=== PATIENT | male | born 1950 | race African-American/Black ===

== ENCOUNTER 2016-06-17 18:43 | Observation (INO) ==
[2016-06-17] MEDS ORDERED: ALBUTEROL/IPRATROPIUM 3 ML NEB RESP TX STA (23:21)
[2016-06-17 23:42] LABS: Basophils % 0.3 % (0.0-0.8); Hematocrit 33.3 VOL% (42.0-52.0); Hemoglobin 10.5 GM/DL (14.0-18.0); Immature Granulocytes % 0.1 %; Immature Granulocytes Absolute 0.01 #; Lymphocytes # 1.1 10*3/uL (1.4-4.0); Lymphocytes % 16.5 % (21.2-54.2); Mean Corpuscular HGB Conc 31.5 GM/DL (32-36); Mean Corpuscular Hemoglobin 28 PG (27-34); Mean Corpuscular Volume 87.6 FL (87-102); Mean Platelet Volume 11.5 FL (9.6-12.0); Monocytes # 1.1 10*3/uL (0.11-0.8); Monocytes % 15.9 % (1.7-12.7); Neutrophils # 4.7 10*3/uL (1.4-7.4); Neutrophils % 67.2 % (38.7-73.9); Platelet Count 181 10*3/uL (130-400); Red Cell Distribution Width 17.4 % (9.3-17.3); White Blood Count 6.9 10*3/uL (4.5-13.71)
[2016-06-17 23:46] LABS: INR 1.2; PT Patient Result 12.5 SECS
[2016-06-17 23:59] LABS: Albumin 2.4 G/DL (3.4-5.0); Bilirubin,Total 1.1 MG/DL (0.2-1.0); Calcium 9.5 MG/DL (8.5-10.1); Potassium 4.2 MMOL/L (3.5-5.1); Total Protein 8.1 G/DL (6.4-8.3)
[2016-06-18 01:05] LABS: Sedimentation Rate-Westergren 90 MM/HR (0-20)
[2016-06-18 01:15] LABS: Apearance,Urine CLOUDY (Clear); Bacteria,Urine Occasional /HPF (Few); Bilirubin,Urine Negative (Negative); Blood, Urine Small mg/dL (Negative); Glucose,Urine (UA) Negative (Negative); Hyaline Casts,Urine 14 /LPF (0-3); Ketones,Urine Negative (Negative); Mucus,Urine Few /LPF (Occasional); Nitrite,Urine Negative (Negative); Protein,Urine 100 MG/DL; RBC,Urine 7 /HPF (0-4); Squamous Epithelial Cell,Urine Occasional /HPF (0-10); Urine Color Amber (Yellow); WBC,Urine 1 /HPF (0-6)
[2016-06-18] MEDS ORDERED: cefTRIAXone 1,000 MG in SODIUM CHLORIDE 0.9% 100 ML IV STA (01:36)
[2016-06-18] MEDS ORDERED: AZITHROMYCIN INJ 500 MG in SODIUM CHLORIDE 0.9% 250 ML IV STA (01:36)
--- NOTE | 2016-06-18 01:36 | Emergency Department Note ---
Nate Rose Sierra, am scribing for, and in the presence of, Jose Toro MD 23:32. Cortez Rose Charles R, MD, personally performed the services described in this documentation, ascribed by Beth Sullivan in my presence, and it is both accurate and complete 135 . Arrival - Arrival Chief Complaint: Upper Respiratory Stated Complaint: cold ED Nursing Triage Note: pt presents to triage ambulatory when c/o cold s/s. reports non-productive cough. report temp max at home was 101.8. pt has colon ca with liver mets. last chemo was 2 wks ago. no resp distress noted Mode of Arrival: Ambulatory Limitations: No Limitations Source: Patient, Family Time Seen by Provider: 06/17/16 22:44 - History of Present Illness HPI Narrative: Pt is a 65 y/o male that came to the ED with c/o fever that began 3 or 4 days ago. Pt has associated sxs of dry throat, cough, sneezing, and chills. Pt is currently taking chemo for colon CA with liver mets. Pt has chemo ago on Saturday. Family member denies pt normally having fever with chemo. Family member reports pt recently had shingles. He has a PMHx of HTN but no DM. No other complaints/pain in ED. Onset (ago): day(s) Consistency: constant Severity: mild Severity scale (1-10): 2 Quality: aching Allergies/Adverse Reactions: Allergies Allergy/AdvReac Type Severity Reaction Status Date / Time No Known Allergies Allergy Verified 05/02/16 22:32 Home Medications: Home Medications Medication Instructions Recorded Confirmed Type Lisinopril/Hydrochlorothiazide 1 each PO DAILY 06/17/16 06/17/16 History [Lisinopril-Hctz 20-25 mg Tab] Review of System - Review of System 12 point system: reviewed and no additional remarkable complaints except as stated - Review of System Constitutional: Present: chills, fever Head/Ears/Nose/Throat: Present: other (sneezing). Absent: sore throat (dry throat) Respiratory: Present: cough Cardiovascular: Absent: chest pain Gastrointestinal: Absent: abdominal pain, nausea, vomiting, diarrhea Musculoskeletal: Absent: arm pain, back pain, leg pain, neck pain Skin: Absent: rash Neurological: Absent: numbness, confusion Psychiatric: Absent: anxiety Medical,Surgical,& Family Hx - Medical History Gastrointestinal: History of: Gastrointestinal Cancer (new diagnosis ca colon with liver mets) Musculoskeletal: No history of: Amputation Other: History of: Cancer (Colon Cancer with liver mets) - Surgical History Cardiac Surgeries: Patient Denies: Cardiac Catheterization Thoracic Surgeries: Patient denies;: Organ Transplant, Lobectomy Neurologic Surgeries: Patient denies: Neurologic Surgery HEENT Surgeries: Patient denies: Thyroid Surgery, Tonsilectomy & Adenoidectomy Abdominal Surgeries: Surgical HX of: Hernia Repair (several years ago) Reproductive Surgeries: Patient denies;: Genitourinary Surgery Orthopedic Surgeries: Surgical HX of;: Total Knee Replacement (right knee 2-3 years ago) Patient denies;: Implanted Devices, Orthopedic Surgery, Spinal Surgery, Total Hip Replacement - Family History Family History: Reports;: Family Cancer (mother-colon, 1 brother has prostate, and 1 brother has colon cancer) Denies;: Family Diabetes - Social History Smoking Status: Never smoker Frequency of Alcohol Use: None Type of Drug Use: None Exam Vital Signs: Vital Signs Temperature 99.1 F 06/17/16 21:39 Pulse Rate 95 H 06/17/16 23:52 Respiratory Rate 21 06/17/16 23:52 Blood Pressure 96/61 06/17/16 23:19 O2 Sat by Pulse Oximetry 100 06/17/16 23:52 - General General appearance: alert, in no apparent distress - Head Head exam: Present: atraumatic, normocephalic, other (temploral wasting) - Eye Eye exam: Present: PERRL, EOMI - ENT ENT exam: Present: mucous membranes dry. Absent: mucous membranes moist - Chest Chest inspection: Present: symmetric chest wall rise. Absent: tenderness - Respiratory Respiratory exam: Present: rhonchi (bilateral rhonchi) - Cardiovascular Cardiovascular exam: Present: tachycardia, normal heart sounds - Abdominal Exam Abdominal exam: Present: soft. Absent: tenderness - Extremities Exam Extremities exam: Present: full ROM. Absent: tenderness - Back Exam Back exam: Present: full ROM. Absent: tenderness - Neurological Exam Neurological exam: Present: alert, oriented X3, CN II-XII intact. Absent: motor sensory deficit - Psychiatric Psychiatric exam: Present: normal affect, normal mood - Skin Skin exam: Present: warm, dry Course - Consultations Consultation #1: Dr. Bradshaw will admit for Dr. Grant Time: 01:21 Results - Labs CBC & BMP: 06/17/16 23:21 06/17/16 23:21 Lab Results: I have reviewed the patients labs Labs: Microbiology 06/17/16 23:32 Nasal Aspirate Influenza Types A,B Antigen (AGATA) - Final Negative for Influenza A Ag Negative for Influenza B Ag 06/17/16 23:15 Throat Group A Streptococcus Rapid Screen - Final Negative for Grp A Strep Ag Laboratory Tests 06/17/16 06/17/16 23:21 23:21 Hgb 10.5 L Hct 33.3 L MCHC 31.5 L RDW 17.4 H Lymph % (Auto) 16.5 L Morrow % (Auto) 15.9 H Lymph # (Auto) 1.1 L Morrow # (Auto) 1.1 H Anion Gap 17.2 H BUN 38 H Creatinine 1.70 H BUN/Creatinine Ratio 22.00 H Glucose 111 H Total Bilirubin 1.10 H ALT 11 L Alkaline Phosphatase 148 H C-Reactive Protein 30.90 H Albumin 2.4 L Globulin 5.7 H Albumin/Globulin Ratio 0.4 L Laboratory Tests 06/17/16 23:21 Hgb 10.5 L Hct 33.3 L MCHC 31.5 L RDW 17.4 H Lymph % (Auto) 16.5 L Morrow % (Auto) 15.9 H Lymph # (Auto) 1.1 L Morrow # (Auto) 1.1 H ESR Westergren 90 H Laboratory Tests 06/18/16 01:00 Urine Urobilinogen 2.0 H Disposition Clinical Impression: Upper respiratory infection, Colon cancer metastasized to liver, Fever Case discussed with: patient, patient's family Disposition: Still a Patient Condition: Stable Time of Disposition: 01:35
[2016-06-18] MEDS ORDERED: cefTRIAXone 1,000 MG VIAL ONE (01:40)
[2016-06-18] MEDS ORDERED: AZITHROMYCIN 500 MG VIAL IV ONE (01:40)
[2016-06-18] MEDS ORDERED: traMADol 50 MG TABLET PO PRN (02:19)
[2016-06-18] MEDS ORDERED: chlorproMAZINE INJ 50 MG in SODIUM CHLORIDE 0.9% 100 ML IV PRN (02:19)
[2016-06-18] MEDS ORDERED: TEMAZEPAM 7.5 MG CAPSULE PO PRN (02:19)
[2016-06-18] MEDS ORDERED: ACETAMINOPHEN 325 MG TABLET PO PRN (02:19)
[2016-06-18] MEDS ORDERED: ALUMINUM/MAGNES/SIMETH MAX STR 30 ML UDCUP PO PRN (02:19)
[2016-06-18] MEDS ORDERED: ALPRAZolam 0.25 MG TABLET PO PRN (02:19)
[2016-06-18] MEDS ORDERED: LOPERAMIDE 2 MG CAPSULE PO PRN ×2 (02:19)
[2016-06-18] MEDS ORDERED: PROMETHAZINE INJ 25 MG in SODIUM CHLORIDE 0.9% 50 ML IV PRN (02:19)
[2016-06-18] MEDS ORDERED: SODIUM CHLORIDE 0.9% 1,000 ML IV SCH (02:19)
[2016-06-18] MEDS ORDERED: diphenhydrAMINE CAP 25 MG CAPSULE PO PRN (02:19)
[2016-06-18] MEDS ORDERED: BENZTROPINE 2 MG/2 ML AMP IV PRN (02:19)
[2016-06-18] MEDS ORDERED: ONDANSETRON 4 MG/2 ML VIAL IV PRN (02:19)
[2016-06-18] MEDS ORDERED: MYLANTA/LIDO VISC 2:1 300 ML BOTTLE SWISH/SWAL PRN (02:19)
[2016-06-18] MEDS ORDERED: chlorproMAZINE INJ 25 MG in SODIUM CHLORIDE 0.9% 100 ML IV PRN (02:19)
[2016-06-18] MEDS ORDERED: guaiFENesin 200 MG/10 ML UDCUP PO PRN (02:19)
[2016-06-18] MEDS ORDERED: MYLANTA/LIDO VISC 2:1 300 ML BOTTLE SWISH/SPIT PRN (02:19)
[2016-06-18] MEDS ORDERED: chlorproMAZINE 25 MG TABLET PO PRN (02:19)
[2016-06-18] MEDS ORDERED: ALBUTEROL/IPRATROPIUM 3 ML NEB RESP TX PRN (02:19)
[2016-06-18] MEDS ORDERED: LACTULOSE 20 GM/30 ML UDCUP PO PRN (02:19)
[2016-06-18] MEDS ORDERED: MAGNESIUM HYDROXIDE SUSP 30 ML UDCUP PO PRN (02:19)
[2016-06-18 03:35] LABS: Lymphocytes 14 % (20-55); Platelet Estimate Normal; Segmented Neutrophils 69 % (50-85); Total Cells Counted 100
[2016-06-18 04:01] LABS: Basophils % 0.3 % (0.0-0.8); Immature Granulocytes % 0.3 %; Immature Granulocytes Absolute 0.02 #; Lymphocytes # 1.4 10*3/uL (1.4-4.0); Lymphocytes % 21.2 % (21.2-54.2); Mean Corpuscular HGB Conc 31.3 GM/DL (32-36); Mean Corpuscular Hemoglobin 28 PG (27-34); Mean Corpuscular Volume 88.4 FL (87-102); Mean Platelet Volume 11.6 FL (9.6-12.0); Monocytes # 1.1 10*3/uL (0.11-0.8); Monocytes % 17.2 % (1.7-12.7); Platelet Count 197 10*3/uL (130-400); Red Blood Count 3.62 10*6/uL (3.8-5.5); Red Cell Distribution Width 17.6 % (9.3-17.3); White Blood Count 6.6 10*3/uL (4.5-13.71)
[2016-06-18 04:08] LABS: INR 1.2; PT Patient Result 12.4 SECS
[2016-06-18 04:35] LABS: Eosinophils 1 % (0-10); Lymphocytes 17 % (20-55); Platelet Estimate Normal; Segmented Neutrophils 64 % (50-85); Total Cells Counted 100
[2016-06-18 04:38] LABS: Albumin 2.4 G/DL (3.4-5.0); Bilirubin,Total 0.8 MG/DL (0.2-1.0); Calcium 9.1 MG/DL (8.5-10.1); Magnesium 2.2 MG/DL (1.8-2.4); Osmolality,Calculated 297.7 MOS/KG (273-304); Potassium 4.1 MMOL/L (3.5-5.1); Total Protein 6.9 G/DL (6.4-8.3); Uric Acid 7.3 MG/DL (3.5-7.2)
--- NOTE | 2016-06-18 06:14 | XRay Report ---
History: Shortness of breath and fever Date: 06/17/2016 at 11:30 PM Study: Chest x-ray single view Comparison exam: May 02, 2016 portable chest The cardiac silhouette is upper normal in size. The mediastinal contours are unchanged. The pulmonary vasculature is not engorged. A right subclavian Mediport type catheter is stable in position. The lungs are clear except for some minor strandy subsegmental atelectasis in the right infrahilar area. The osseous structures are unchanged. There is no gross pleural effusion. Impression: Mild strandy subsegmental atelectasis right infrahilar region. Otherwise unchanged PROCEDURE INTERPRETED AT [facility] DEPARTMENT OF RADIOLOGY Final Report Signed by: Dr. Tracie Hearn
--- NOTE | 2016-06-18 08:05 | Oncology History&Physical ---
Assessment and Plan - Time spent with patient Time spent with patient: Greater than 30 minutes (1) Colon cancer metastasized to liver Status: Acute Current Visit: Yes (2) Upper respiratory infection Status: Acute Assessment and plan: I will discharge him home today and he will keep his scheduled appointment with me tomorrow. I will discharge him with Augmentin and also place him on Megace for appetite stimulation. Current Visit: Yes (3) Fever Status: Acute Current Visit: Yes History of Present Illness History of present illness: Mr. Limon is a 65 year old male with metastatic colon cancer to the liver who is currently receiving palliative chemotherapy. He presented to the emergency room yesterday complaining of upper respiratory symptoms and fever. He was flu and strep negative here. He did not have any fevers. His white count was not elevated. However, he was still admitted to the hospital for observation. He was given antibiotics and monitored overnight. He states his appetite has been poor lately. He has lost 15 pounds over the last 2 months. He seems to be responding very well to chemotherapy and was scheduled for a CT scan tomorrow. He is also scheduled for chemotherapy tomorrow. Home Medications Medication Instructions Recorded Confirmed Type Lisinopril/Hydrochlorothiazide 1 each PO DAILY 06/17/16 06/18/16 History [Lisinopril-Hctz 20-25 mg Tab] Allergies Allergy/AdvReac Type Severity Reaction Status Date / Time No Known Allergies Allergy Verified 06/18/16 02:41 Medical,Surgical,& Family Hx - Medical History Cardio: History of: Hypertension Gastrointestinal: History of: Gastrointestinal Cancer (new diagnosis ca colon with liver mets) Musculoskeletal: No history of: Amputation Other: History of: Cancer (Colon Cancer with liver mets) - Surgical History Cardiac Surgeries: Patient Denies: Cardiac Catheterization Thoracic Surgeries: Patient denies;: Organ Transplant, Lobectomy Neurologic Surgeries: Patient denies: Neurologic Surgery HEENT Surgeries: Patient denies: Thyroid Surgery, Tonsilectomy & Adenoidectomy Abdominal Surgeries: Surgical HX of: Hernia Repair (several years ago) Reproductive Surgeries: Patient denies;: Genitourinary Surgery Orthopedic Surgeries: Surgical HX of;: Total Knee Replacement (right knee 2-3 years ago) Patient denies;: Implanted Devices, Orthopedic Surgery, Spinal Surgery, Total Hip Replacement - Family History Family History: Reports;: Family Cancer (mother-colon, 1 brother has prostate, and 1 brother has colon cancer) Denies;: Family Diabetes - Social History Smoking Status: Never smoker Frequency of Alcohol Use: None Type of Drug Use: None 12 point system: reviewed and no additional remarkable complaints except as stated - Constitutional Constitutional: Present: fatigue, fever(s), weight loss - Gastrointestinal Gastrointestinal: Present: early satiety Exam - Constitutional Vitals: Period Temp Pulse Resp BP Sys/Flores Pulse Ox Last 24 Hr 97.9 F-98.4 F 83-90 18-20 90-105/52-59 96-96 General appearance: normal weight, no acute distress - Head Head Exam: Present: normocephalic, atraumatic - Eye Eye Exam: Present: EOMI Pupils: Present: PERRL - ENT ENT exam: Present: normal exam, normal oropharynx - Neck Neck exam: Absent: lymphadenopathy, thyromegaly - Respiratory Respiratory exam: Present: CTAB. Absent: wheezes - Cardiovascular Cardiovascular exam: Present: RRR. Absent: JVD, systolic murmur - GI/Abdominal GI/Abdominal exam: Present: soft. Absent: ascites, distended, firm, guarding, mass - Neurological Exam Neurological exam: Present: alert, oriented X3 - Psychiatric Psychiatric exam: Present: normal affect, normal mood - Skin Skin exam: Present: warm, dry Results - Labs CBC & BMP: 06/18/16 02:58 06/18/16 02:58 Lab Results: I have reviewed the past 24 hour labs - Diagnostic Findings Procedure: Chest x-ray: report reviewed by me
--- NOTE | 2016-06-18 08:09 | Discharge Summary ---
Hospital Course - Hospital Course Hospital Course: See history and physical as this discharge summary was done at the same time. Patient will keep his scheduled CT scan in the morning with his follow-up office visit shortly thereafter. Diagnosis - Discharge Diagnosis (1) Colon cancer metastasized to liver Status: Acute (2) Upper respiratory infection Status: Acute (3) Fever Status: Acute Specialty Discharge - Follow Up or Referrals Follow up with: Aramis Grant MD [Physician] - (Keep appointments for scans and Dr. negron .) - Discharge Medications No Action Lisinopril/Hydrochlorothiazide [Lisinopril-Hctz 20-25 mg Tab] 1 each PO DAILY Discharge Plan - Discharge Data Disposition: Disch To Home/Self Care Condition at Discharge: Stable Discharge Diet: advance to your usual diet Activity: resume usual activities as tolerated Hygiene: no restrictions Weight Bearing at Discharge: full weight bearing - Discharge Medications New Amoxicillin/Clav Tab [Augmentin Tab] 875 mg PO BID #10 tablet Megestrol Es Liquid [Megace Es Liquid] 625 mg PO DAILY #150 ml Continue RX: Lisinopril/Hydrochlorothiazide [Lisinopril-Hctz 20-25 mg Tab] 1 each PO DAILY - Follow Up or Referral Follow Up: Aramis Grant MD [Physician] - (Keep appointments for scans and Dr. negron .) - Forms/Instructions Exam - Constitutional Vitals: Period Temp Pulse Resp BP Sys/Flores Pulse Ox Last 24 Hr 97.9 F-98.4 F 83-90 18-20 90-105/52-59 96-96 Discharge Results Procedures and tests throughout hospitalization: Pending Orders 06/18/16 04:00 XR chest 2V IN AM 06/18/16 08:00 Urinalysis Routine Labs on day of discharge: Labs from last 24 hours 06/18/16 06/18/16 06/18/16 02:58 02:58 02:58 WBC 6.6 RBC 3.62 L Hgb 10.0 L Hct 32.0 L MCV 88.4 MCH 28 MCHC 31.3 L RDW 17.6 H Plt Count 197 MPV 11.6 Neut % (Auto) 61.0 Lymph % (Auto) 21.2 Hopkins % (Auto) 17.2 H Eos % (Auto) 0.0 Baso % (Auto) 0.3 Neut # (Auto) 4.0 Lymph # (Auto) 1.4 Hopkins # (Auto) 1.1 H Eos # (Auto) 0.0 Baso # (Auto) 0.0 Total Counted 100 Immature Gran % 0.3 Nucleated RBC % 0.0 Immature Gran # 0.02 Segmented Neutrophils 64 Lymphocytes 17 L Monocytes 18 H Eosinophils 1 Nucleated RBCs # 0.00 Platelet Estimate Normal Pappenheimer Bodies Digital Strategy Manager INR 1.2 PT Patient/Control Mix 12.4 Sodium 145 Potassium 4.1 Chloride 106 Carbon Dioxide 26 Anion Gap 17.1 H BUN 40 H Creatinine 1.70 H GFR Calculation 49 BUN/Creatinine Ratio 23.00 H Glucose 103 Calculated Osmolality 297.7 Uric Acid 7.3 H Calcium 9.1 Magnesium 2.2 Total Bilirubin 0.80 AST 12 ALT 10 L Alkaline Phosphatase 148 H Lactate Dehydrogenase 116 Total Protein 6.9 Albumin 2.4 L Globulin 4.5 H Albumin/Globulin Ratio 0.5 L DS: Provider Date of admission: 06/18/16 01:36 Primary care physician: Naresh Appiah Attending physician on admission: Aramis Grant MD Consults: 06/18/16 02:57 Consult to Pharmacy [CONS] Routine Reason for Pharmacy Consult: Adjust Meds Renal Funct 06/18/16 03:06 Consult to Dietitian [CONS] Routine Reason for Dietitian: Dietary Consult Discharging clinician: Aramis Grant MD
[2016-06-18] MEDS ORDERED: LISINOPRIL/HCTZ 20-25 MG TABLET PO SCH (09:00)
[2016-06-18] MEDS ORDERED: PANTOPRAZOLE 40 MG VIAL IV SCH (09:00)
[2016-06-18 10:10] LABS: Apearance,Urine CLOUDY (Clear); Bacteria,Urine Occasional /HPF (Few); Bilirubin,Urine Negative (Negative); Blood, Urine Small mg/dL (Negative); Glucose,Urine (UA) Negative (Negative); Hyaline Casts,Urine 9 /LPF (0-3); Ketones,Urine Negative (Negative); Mucus,Urine Occasional /LPF (Occasional); Nitrite,Urine Negative (Negative); Protein,Urine 30 MG/DL; RBC,Urine 14 /HPF (0-4); Squamous Epithelial Cell,Urine Occasional /HPF (0-10); Urine Color Amber (Yellow); Urine Specific Gravity 1.019 (1.001-1.035); Urine Urobilinogen < 2.0 EU/DL (0.2-1.0); WBC,Urine 10 /HPF (0-6)
[2016-06-18] MEDS ORDERED: HEPARIN LOCK FLUSH 500 UNIT/5 ML SYRINGE IV ONE (10:32)
--- NOTE | 2016-06-18 10:45 | XRay Report ---
History: Fever Date: 06/18/2016 8:44 AM Study: Chest x-ray PA and lateral Comparison exam: Chest x-ray 06/17/2016 The cardiac silhouette is upper normal. There is no mediastinal mass. The pulmonary vasculature is not engorged. A right subclavian Mediport catheter is well-positioned. The lungs and pleural spaces are clear. There is mild thoracic spondylosis. Impression: No acute cardiopulmonary process compared to the previous study PROCEDURE INTERPRETED AT [facility] DEPARTMENT OF RADIOLOGY Final Report Signed by: Dr. Tracie Hearn
[2016-06-18 13:07] VITALS: BP 130/84
[2016-06-18] MEDS ORDERED: cefTRIAXone 1,000 MG in SODIUM CHLORIDE 0.9% 100 ML IV SCH (21:00)
[2016-06-18] MEDS ORDERED: AZITHROMYCIN INJ 500 MG in SODIUM CHLORIDE 0.9% 250 ML IV SCH (22:00)
== END 2016-06-18 11:50 | disposition home or self-care (01) ==
LOC: N.EDINP 18:43 → N.ED 18:43 → N.EDINP 06-18 02:20 → N.4E 06-18 02:38
PROVIDERS: ADMIT Specialist; ATTEND Specialist

== ENCOUNTER 2016-11-25 21:08 | Observation (INO) ==
[2016-11-25 21:56] LABS: Basophils # 0.1 10*3/uL (0.0-0.2); Basophils % 0.6 % (0.0-0.8); Eosinophils # 0.1 10*3/uL (0.0-0.87); Eosinophils % 1.1 % (0.00-10.9); Hematocrit 29.5 VOL% (42.0-52.0); Hemoglobin 9.7 GM/DL (14.0-18.0); Immature Granulocytes % 9.3 %; Immature Granulocytes Absolute 0.74 #; Lymphocytes # 1.7 10*3/uL (1.4-4.0); Lymphocytes % 20.7 % (21.2-54.2); Mean Corpuscular HGB Conc 32.9 GM/DL (32-36); Mean Corpuscular Hemoglobin 31 PG (27-34); Mean Corpuscular Volume 93.1 FL (87-102); Mean Platelet Volume 9.8 FL (9.6-12.0); Monocytes # 1.1 10*3/uL (0.11-0.8); Monocytes % 13.8 % (1.7-12.7); Neutrophils # 4.4 10*3/uL (1.4-7.4); Neutrophils % 54.5 % (38.7-73.9); Platelet Count 414 T/CUMM (130-400); Red Blood Count 3.17 MC/CUMM (3.8-5.5); Red Cell Distribution Width 17.7 % (9.3-17.3)
[2016-11-25 22:17] LABS: Band Neutrophils 1 % (0-10); Eosinophils 1 % (0-10); Lymphocytes 20 % (20-55); Metamyelocytes 2 %; Myelocytes 3 %; Segmented Neutrophils 59 % (50-85); Total Cells Counted 100
[2016-11-25 22:18] LABS: Hypochromasia Slight; Platelet Estimate Increased; Polychromasia Few; Schistocytes Slight
[2016-11-25 22:19] LABS: INR 1.1; PT Patient Result 11.5 SECS
[2016-11-25 22:40] LABS: Albumin 2.4 G/DL (3.4-5.0); Bilirubin,Total 0.9 MG/DL (0.2-1.0); Calcium 9.1 MG/DL (8.5-10.1); Osmolality,Calculated 290.7 MOS/KG (273-304); Potassium 3.8 MMOL/L (3.5-5.1); Total Protein 6.9 G/DL (6.4-8.3)
[2016-11-25 23:22] LABS: Apearance,Urine Slightly Hazy (Clear); Bilirubin,Urine Negative (Negative); Blood, Urine Negative (Negative); Glucose,Urine (UA) Negative (Negative); Hyaline Casts,Urine 19 /LPF (0-3); Ketones,Urine Negative (Negative); Mucus,Urine Few /LPF (Occasional); Nitrite,Urine Negative (Negative); Protein,Urine 30 MG/DL; Squamous Epithelial Cell,Urine Occasional /HPF (0-10); Urine Color Amber (Yellow); Urine Specific Gravity 1.024 (1.001-1.035); WBC,Urine 1 /HPF (0-6)
[2016-11-26] MEDS ORDERED: MYLANTA/LIDO VISC 2:1 300 ML BOTTLE SWISH/SPIT PRN (00:15)
[2016-11-26] MEDS ORDERED: chlorproMAZINE INJ 25 MG in SODIUM CHLORIDE 0.9% 100 ML IV PRN (00:15)
[2016-11-26] MEDS ORDERED: MAGNESIUM HYDROXIDE SUSP 30 ML UDCUP PO PRN (00:15)
[2016-11-26] MEDS ORDERED: PROMETHAZINE INJ 25 MG in SODIUM CHLORIDE 0.9% 50 ML IV PRN (00:15)
[2016-11-26] MEDS ORDERED: ONDANSETRON 4 MG/2 ML VIAL IV PRN (00:15)
[2016-11-26] MEDS ORDERED: diphenhydrAMINE CAP 25 MG CAPSULE PO PRN (00:15)
[2016-11-26] MEDS ORDERED: chlorproMAZINE 25 MG TABLET PO PRN (00:15)
[2016-11-26] MEDS ORDERED: ACETAMINOPHEN 325 MG TABLET PO PRN (00:15)
[2016-11-26] MEDS ORDERED: LACTULOSE 20 GM/30 ML UDCUP PO PRN (00:15)
[2016-11-26] MEDS ORDERED: ALPRAZolam 0.25 MG TABLET PO PRN (00:15)
[2016-11-26] MEDS ORDERED: MYLANTA/LIDO VISC 2:1 300 ML BOTTLE SWISH/SWAL PRN (00:15)
[2016-11-26] MEDS ORDERED: guaiFENesin 200 MG/10 ML UDCUP PO PRN (00:15)
[2016-11-26] MEDS ORDERED: traMADol 50 MG TABLET PO PRN (00:15)
[2016-11-26] MEDS ORDERED: LOPERAMIDE 2 MG CAPSULE PO PRN ×2 (00:15)
[2016-11-26] MEDS ORDERED: chlorproMAZINE INJ 50 MG in SODIUM CHLORIDE 0.9% 100 ML IV PRN (00:15)
[2016-11-26] MEDS ORDERED: TEMAZEPAM 7.5 MG CAPSULE PO PRN (00:15)
[2016-11-26] MEDS ORDERED: ALUMINUM/MAGNES/SIMETH MAX STR 30 ML UDCUP PO PRN (00:15)
[2016-11-26] MEDS ORDERED: BENZTROPINE 2 MG/2 ML AMP IV PRN (00:15)
--- NOTE | 2016-11-26 00:15 | Emergency Department Note ---
IErika Mantricia, am scribing for, and in the presence of, Zeb Francisco M.D. 22:15. INolan Howard T, M.D., personally performed the services described in this documentation, ascribed by Luke James in my presence, and it is both accurate and complete . Arrival - Arrival Chief Complaint: Altered Mental Status Stated Complaint: altered mental status ED Nursing Triage Note: pt to triage per bev reno. pt family called ems for ams x 3 days. pt has hx colon ca/ mets to liver. pt awakens to verbal stimuli. [id number] Mode of Arrival: Stretcher Limitations: No Limitations Source: Patient Time Seen by Provider: 11/25/16 21:34 - History of Present Illness HPI Narrative: Pt is a 66 y/o black male arriving to ED by EMS for evaluation of AMS that onset 3 days ago. Daughter states that pt normally sleeps all day and is cooperative when talked to; however he does get up and walk occasionally. However, in the past 3 days, pt has slept all day and has not been able to walk. Pt has colon cancer and missed his chemo last Saturday because he was feeling ill. 3 weeks ago, pt's last treatment, he was told that his number are going back up. Pt is currently on no blood thinners but has been urinating blood and has seen blood in his stool off and on. Pt awakens and states that he is not in pain but does report nausea. He reports no other complaints to ED. Onset (ago): day(s) Consistency: constant Allergies/Adverse Reactions: Allergies Allergy/AdvReac Type Severity Reaction Status Date / Time No Known Allergies Allergy Verified 11/25/16 21:15 Home Medications: Home Medications Medication Instructions Recorded Confirmed Type Lisinopril/Hydrochlorothiazide 1 each PO DAILY 06/17/16 11/17/16 History [Lisinopril-Hctz 20-25 mg Tab] Megestrol Es Liquid [Megace Es 625 mg PO DAILY 08/11/16 11/17/16 History Liquid] chlorproMAZINE TAB [Thorazine Tab] 25 mg PO Q6H PRN #20 tablet 08/14/16 Rx Metoclopramide Tab [Reglan Tab] 5 mg PO ACHS #40 tablet 10/06/16 11/17/16 Rx Ondansetron Odt Tab [Zofran Odt] 4 mg PO Q4H PRN #10 tablet 10/22/16 11/17/16 Rx Ondansetron Odt Tab [Zofran Odt] 4 mg PO Q6H PRN 10/22/16 11/17/16 History Albuterol Inhaler [Proventil 2 puff INH Q6H PRN #1 inhaler 11/12/16 11/17/16 Rx Inhaler] Ondansetron [Ondansetron Odt] 8 mg PO Q4H PRN #10 tab.rapdis 11/12/16 11/17/16 Rx chlorproMAZINE TAB [Thorazine Tab] 25 mg PO Q4-6H PRN #20 tablet 11/12/16 Rx Baclofen Tab [Lioresal] 5 mg PO BID PRN #10 tablet 11/17/16 Rx Review of System - Review of System 12 point system: reviewed and no additional remarkable complaints except as stated - Review of System Constitutional: Absent: chills, diaphoresis Gastrointestinal: Present: nausea. Absent: abdominal pain, vomiting, diarrhea Genitourinary male: Present: other (urinating blood; blood in stool). Absent: urgency Neurological: Present: other (AMS). Absent: headache, weakness Medical,Surgical,& Family Hx - Medical History Cardio: History of: Hypertension Endocrine: History of: Dyslipidemia Rheumatology: History of;: Gout Gastrointestinal: History of: GERD, Liver Problems (liver mets), Gastrointestinal Cancer (new diagnosis ca colon with liver mets) Musculoskeletal: No history of: Amputation Other: History of: Cancer (Colon Cancer with liver mets. Pt on Chemo--side effect is hiccups) - Surgical History Cardiac Surgeries: Patient Denies: Cardiac Catheterization Thoracic Surgeries: Patient denies;: Organ Transplant, Lobectomy Neurologic Surgeries: Patient denies: Neurologic Surgery HEENT Surgeries: Patient denies: Thyroid Surgery, Tonsilectomy & Adenoidectomy Abdominal Surgeries: Surgical HX of: Hernia Repair (several years ago) Patient denies: Abdominal Surgery Reproductive Surgeries: Patient denies;: Genitourinary Surgery Orthopedic Surgeries: Surgical HX of;: Total Knee Replacement (right knee 2-3 years ago) Patient denies;: Implanted Devices, Orthopedic Surgery, Spinal Surgery, Total Hip Replacement - Family History Family History: Reports;: Family Cancer (mother-colon, 1 brother has prostate, and 1 brother has colon cancer) Denies;: Family Diabetes - Social History Smoking Status: Unknown if ever smoked Frequency of Alcohol Use: None Type of Drug Use: None, Unknown Exam Vital Signs: Vital Signs Temperature 98.5 F 11/25/16 21:09 Pulse Rate 89 11/25/16 21:09 Respiratory Rate 20 11/25/16 21:30 Blood Pressure 134/85 11/25/16 21:09 O2 Sat by Pulse Oximetry 99 11/25/16 21:09 - General General appearance: alert, in no apparent distress, other (old and frail) - Head Head exam: Present: atraumatic, normocephalic, normal inspection - Eye Eye exam: Present: normal appearance, PERRL, EOMI - ENT ENT exam: Present: normal exam, normal oropharynx, mucous membranes moist, TM's normal bilaterally, normal external ear exam - Neck Neck exam: Present: normal inspection, full ROM, trachea midline. Absent: tenderness - Chest Chest inspection: Present: normal inspection, symmetric chest wall rise. Absent : tenderness - Respiratory Respiratory exam: Present: normal lung sounds bilaterally - Cardiovascular Cardiovascular exam: Present: regular rate, normal rhythm, normal heart sounds - Abdominal Exam Abdominal exam: Present: soft, normal bowel sounds. Absent: distention, tenderness, guarding, rebound - Extremities Exam Extremities exam: Present: normal inspection, full ROM, normal capillary refill. Absent: tenderness, pedal edema - Back Exam Back exam: Present: normal inspection, full ROM. Absent: tenderness - Neurological Exam Neurological exam: Present: alert, oriented X3, CN II-XII intact, normal gait, reflexes normal, other (not confused) - Psychiatric Psychiatric exam: Present: normal affect, normal mood - Skin Skin exam: Present: warm, dry, intact, normal color Course Course Narrative: Medical decision making: No obvious acute pathology like infection or CVA, however because of deterioration and after discussion with she agreed to have the patient admitted to see Dr. Grant in the morning. Results - Labs CBC & BMP: 11/25/16 21:21 11/25/16 21:21 Lab Results: I have reviewed the patients labs Labs: Laboratory Tests 11/25/16 11/25/16 11/25/16 21:21 21:21 21:21 RBC 3.17 L Hgb 9.7 L Hct 29.5 L RDW 17.7 H Plt Count 414 H Lymph % (Auto) 20.7 L [place] % (Auto) 13.8 H [place] # (Auto) 1.1 H Basophils 2.0 H Chloride 112 H BUN 20 H ALT 11 L Alkaline Phosphatase 171 H Albumin 2.4 L Globulin 4.5 H Albumin/Globulin Ratio 0.5 L Urine Urobilinogen 4.0 H - Diagnostic Findings Procedure: CT: report reviewed by me (Head: no acute process) Disposition Clinical Impression: Altered mental status, Colon cancer metastasized to liver Case discussed with: patient, patient's family Disposition: Still a Patient Condition: Stable Time of Disposition: 00:14
[2016-11-26] MEDS: SODIUM CHLORIDE 0.45% 1,000 ML IV SCH ×2 (01:35→16:44)
--- NOTE | 2016-11-26 06:26 | CT Report ---
History: Altered level of consciousness. History of colon cancer Date: 11/25/2016 Study: CT head without contrast Comparison exam: No previous head CT available for comparison purposes Transaxial CT sections were obtained through the head without IV contrast. This CT exam was performed using one or more the following dose reduction techniques: Automated exposure control, adjustment of the MA and/or KV according to patient size, or use of iterative reconstruction technique. The study was also reviewed by [employer]. The ventricles are midline in position without evidence of hydrocephalus. There is mild diffuse cerebral atrophy. There is no mass or parenchymal hemorrhage. There is no gross CT evidence of acute cortical stroke. There is no extra-axial hematoma. There is no acute abnormality of the calvarium. The partially visualized paranasal sinuses and mastoid air cells are clear. Impression: No acute intracranial process PROCEDURE INTERPRETED AT [facility] DEPARTMENT OF RADIOLOGY Final Report Signed by: Dr. Tracie Hearn
[2016-11-26] MEDS ORDERED: METOCLOPRAMIDE 5 MG TABLET PO PRN (07:56)
--- NOTE | 2016-11-26 08:00 | Oncology History&Physical ---
Assessment and Plan - Time spent with patient Time spent with patient: Greater than 30 minutes (1) Colon cancer metastasized to liver Status: Acute Assessment and plan: We will continue IV hydration. I will x-ray his left knee. I will consult physical therapy for assessment. We will likely keep him here for a couple days while we transition to supportive care only. At the time of discharge I hope to send him home with home hospice. He and his are both in agreement with this plan at this time. I will convert his CODE STATUS to DNR. Current Visit: Yes (2) Anemia Status: Acute Current Visit: No (3) Nausea & vomiting Status: Acute Current Visit: No (4) Dehydration Status: Acute Current Visit: No (5) Altered mental status Status: Acute Current Visit: Yes History of Present Illness History of present illness: Mr. Limon is a 66 year old male with a history of metastatic colon cancer that we began treatment on in early 2016. At that time he presented with severe hepatomegaly and liver failure. We aggressively started chemotherapy and he had a very dramatic response initially but over the last 2 months he has worsened and his CEA continues to rise even though we have changed chemotherapy. His physical condition has declined and he is now practically immobile. He is weakened and taking in very little p.o. intake. We skip chemotherapy last week due to severe fatigue. We gave him 2 L of normal saline. His abdomen is not distended at this time. He complains of left knee pain. I had a discussion with he and his this morning about his continued worsening and feel like we are at a place to discontinue chemotherapy and consider supportive measures with home hospice. Home Medications Medication Instructions Recorded Confirmed Type Lisinopril/Hydrochlorothiazide 1 each PO DAILY 06/17/16 11/17/16 History [Lisinopril-Hctz 20-25 mg Tab] Megestrol Es Liquid [Megace Es 625 mg PO DAILY 08/11/16 11/17/16 History Liquid] chlorproMAZINE TAB [Thorazine Tab] 25 mg PO Q6H PRN #20 tablet 08/14/16 Rx Metoclopramide Tab [Reglan Tab] 5 mg PO ACHS #40 tablet 10/06/16 11/17/16 Rx Ondansetron Odt Tab [Zofran Odt] 4 mg PO Q4H PRN #10 tablet 10/22/16 11/17/16 Rx Ondansetron Odt Tab [Zofran Odt] 4 mg PO Q6H PRN 10/22/16 11/17/16 History Albuterol Inhaler [Proventil 2 puff INH Q6H PRN #1 inhaler 11/12/16 11/17/16 Rx Inhaler] Ondansetron [Ondansetron Odt] 8 mg PO Q4H PRN #10 tab.rapdis 11/12/16 11/17/16 Rx chlorproMAZINE TAB [Thorazine Tab] 25 mg PO Q4-6H PRN #20 tablet 11/12/16 Rx Baclofen Tab [Lioresal] 5 mg PO BID PRN #10 tablet 11/17/16 Rx Allergies Allergy/AdvReac Type Severity Reaction Status Date / Time No Known Allergies Allergy Verified 11/25/16 21:15 Medical,Surgical,& Family Hx - Medical History Cardio: History of: Hypertension Endocrine: History of: Dyslipidemia Rheumatology: History of;: Gout Genitourinary: History of: Problems (pt voices pt has blood in urine) Gastrointestinal: History of: GERD, Gastrointestinal Bleed (pt voices pt has been having bright red blood in stool), Liver Problems (liver mets), Gastrointestinal Cancer (new diagnosis ca colon with liver mets) Musculoskeletal: No history of: Amputation Other: History of: Cancer (Colon Cancer with liver mets. Pt on Chemo--side effect is hiccups) - Surgical History Cardiac Surgeries: Patient Denies: Cardiac Catheterization Thoracic Surgeries: Patient denies;: Organ Transplant, Lobectomy Neurologic Surgeries: Patient denies: Neurologic Surgery HEENT Surgeries: Patient denies: Thyroid Surgery, Tonsilectomy & Adenoidectomy Abdominal Surgeries: Surgical HX of: Abdominal Surgery, Hernia Repair (several years ago) Reproductive Surgeries: Patient denies;: Genitourinary Surgery Orthopedic Surgeries: Surgical HX of;: Total Knee Replacement (right knee 2-3 years ago) Patient denies;: Implanted Devices, Orthopedic Surgery, Spinal Surgery, Total Hip Replacement - Family History Family History: Reports;: Family Cancer (mother-colon, 1 brother has prostate, and 1 brother has colon cancer) Denies;: Family Diabetes - Social History Smoking Status: Unknown if ever smoked Frequency of Alcohol Use: None Type of Drug Use: None, Unknown 12 point system: reviewed and no additional remarkable complaints except as stated - Constitutional Constitutional: Present: fatigue, malaise, weakness, weight loss - Cardiovascular Cardiovascular ROS IM: Absent: chest pain - Gastrointestinal Gastrointestinal: Present: early satiety, nausea, vomiting. Absent: abdominal pain, heartburn, melena, jaundice Exam - Constitutional Vitals: Period Temp Pulse Resp BP Sys/Flores Pulse Ox Last 24 Hr 96.8 F-98.5 F 73-89 18-20 134-150/78-86 99-100 General appearance: no acute distress, under weight - Head Head Exam: Present: normocephalic, atraumatic - Eye Eye Exam: Present: EOMI. Absent: scleral icterus Pupils: Present: PERRL - Neck Neck exam: Absent: lymphadenopathy, thyromegaly - Respiratory Respiratory exam: Present: CTAB. Absent: wheezes - Cardiovascular Cardiovascular exam: Present: RRR. Absent: JVD, systolic murmur - GI/Abdominal GI/Abdominal exam: Present: soft. Absent: ascites, distended, mass - Neurological Exam Neurological exam: Present: alert, oriented X3 - Psychiatric Psychiatric exam: Present: normal affect, normal mood - Skin Skin exam: Present: warm, dry Results - Labs CBC & BMP: 11/25/16 21:21 11/25/16 21:21 Lab Results: I have reviewed the past 24 hour labs
--- NOTE | 2016-11-26 08:52 | XRay Report ---
History: Left knee pain Date: 11/26/2016 Study: Left knee 2 views Comparison exam: May 02, 2016 There is no fracture, dislocation, or focal destructive osseous abnormality. There is mild to moderate osteophyte formation in the anterior and lateral joint compartments. There is moderate or greater joint space narrowing in the lateral compartment of the knee which appears increased compared to the previous study. There is trace joint effusion which is improved. Impression: Osteoarthritis which has worsened in the lateral joint compartment since the previous study. Trace joint effusion which is improved in the interval PROCEDURE INTERPRETED AT [facility] DEPARTMENT OF RADIOLOGY Final Report Signed by: Dr. Tracie Hearn
[2016-11-26] MEDS: MEGESTROL ES 125 MG/ML 30 ML/BOTTLE PO SCH (09:35)
[2016-11-27] MEDS: SODIUM CHLORIDE 0.45% 1,000 ML IV SCH ×3 (00:54→21:03)
[2016-11-27] MEDS ORDERED: DEXAMETHASONE INJ 20 MG in SODIUM CHLORIDE 0.9% 50 ML IV ONE (07:33)
--- NOTE | 2016-11-27 07:38 | Oncology Progress Note ---
Assessment and Plan (1) Anemia Status: Acute Current Visit: No (2) Nausea & vomiting Status: Acute Current Visit: No (3) Dehydration Status: Acute Current Visit: No (4) Altered mental status Status: Acute Current Visit: Yes (5) Colon cancer metastasized to liver Status: Acute Current Visit: Yes Oncology Subjective PN Interval history: Mr. Limon states he feels better today that his left knee still bothers him significantly. His x-ray yesterday shows osteoarthritis with a slight joint effusion. This joint effusion is actually improved from previous imaging. I will give him a big dose of steroids today and ibuprofen to see if this helps. We will continue with IV hydration. I will recheck lab work today including an ammonia level. If we are doing well tomorrow my plan is to discharge him home with home hospice. I have consult physical therapy to come see him to see if he will be able to get out of bed on his own help assess how much needs he will have at home. Exam - Constitutional Vitals: Period Temp Pulse Resp BP Sys/Flores Pulse Ox Last 24 Hr 98 F-98.8 F 93-98 18-22 129-168/81-90 95-98 General appearance: normal weight, no acute distress - Head Head Exam: Present: normocephalic, atraumatic - Eye Eye Exam: Present: EOMI Pupils: Present: PERRL - ENT ENT exam: Present: normal exam, normal oropharynx - Neck Neck exam: Absent: lymphadenopathy, thyromegaly - Respiratory Respiratory exam: Present: CTAB. Absent: wheezes - Cardiovascular Cardiovascular exam: Present: RRR. Absent: JVD, systolic murmur - GI/Abdominal GI/Abdominal exam: Present: soft. Absent: ascites, distended, firm - Neurological Exam Neurological exam: Present: alert, oriented X3 - Psychiatric Psychiatric exam: Present: normal affect, normal mood - Skin Skin exam: Present: warm, dry Results - Labs CBC & BMP: 11/25/16 21:21 11/25/16 21:21 Lab Results: I have reviewed the past 24 hour labs - Diagnostic Findings Procedure: X-ray: report reviewed by me
[2016-11-27 08:02] LABS: Basophils % 0.4 % (0.0-0.8); Eosinophils # 0.1 10*3/uL (0.0-0.87); Eosinophils % 0.6 % (0.00-10.9); Hematocrit 28.1 VOL% (42.0-52.0); Hemoglobin 9.3 GM/DL (14.0-18.0); Immature Granulocytes % 8.9 %; Immature Granulocytes Absolute 0.86 #; Lymphocytes # 1.6 10*3/uL (1.4-4.0); Lymphocytes % 16.3 % (21.2-54.2); Mean Corpuscular HGB Conc 33.1 GM/DL (32-36); Mean Corpuscular Hemoglobin 30 PG (27-34); Mean Corpuscular Volume 91.5 FL (87-102); Mean Platelet Volume 9.7 FL (9.6-12.0); Monocytes # 1.1 10*3/uL (0.11-0.8); Monocytes % 11.1 % (1.7-12.7); NRBC # 0.03 10*3/uL; Neutrophils # 6.1 10*3/uL (1.4-7.4); Neutrophils % 62.7 % (38.7-73.9); Platelet Count 351 T/CUMM (130-400); Red Blood Count 3.07 MC/CUMM (3.8-5.5); Red Cell Distribution Width 17.2 % (9.3-17.3); White Blood Count 9.7 T/CUMM (4-12)
[2016-11-27 08:24] LABS: Band Neutrophils 1 % (0-10); Eosinophils 1 % (0-10); Hypochromasia Slight; Lymphocytes 16 % (20-55); Metamyelocytes 1 %; Segmented Neutrophils 68 % (50-85); Total Cells Counted 100
[2016-11-27 08:25] LABS: Microcytosis 1+
[2016-11-27] MEDS: MEGESTROL ES 125 MG/ML 30 ML/BOTTLE PO SCH (08:36)
[2016-11-27] MEDS: IBUPROFEN 800 MG TABLET PO SCH ×2 (08:36→21:00)
[2016-11-27 08:39] LABS: Calcium 8.7 MG/DL (8.5-10.1); Osmolality,Calculated 278.3 MOS/KG (273-304); Potassium 3.5 MMOL/L (3.5-5.1)
--- NOTE | 2016-11-28 07:51 | Discharge Summary ---
Hospital Course - Hospital Course Hospital Course: Mr. Limon is a 66-year-old black male with metastatic colon cancer with extensive liver involvement who was initiated on palliative chemotherapy earlier this year. He initially responded very well but over the last 2 months has showed signs of progression even with increased intensity of his chemotherapy. His CEA level continues to rise. He continues to lose weight. His functional status has deteriorated fairly rapidly. He is admitted to the hospital 2 days ago with failure to thrive and dehydration. We have all agreed to do no further chemotherapy at this point. Hospice was arranged to [facility]. He will be discharged home today and have his further care managed by the hospice company. He does not need any follow-up appointments scheduled with me. I will be following him to the hospice service. I anticipate him to survive only a few more weeks to months. - Time spent with patient Time with patient DS: Greater than 30 minutes Diagnosis - Discharge Diagnosis (1) Anemia Status: Acute (2) Nausea & vomiting Status: Acute (3) Dehydration Status: Acute (4) Altered mental status Status: Acute (5) Colon cancer metastasized to liver Status: Acute Discharge Plan - Discharge Data Disposition: Hospice - Home Condition at Discharge: Stable Discharge Diet: advance to your usual diet Activity: resume usual activities as tolerated Hygiene: no restrictions Weight Bearing at Discharge: full weight bearing - Discharge Medications New Metoclopramide Tab [Reglan Tab] 5 mg PO ACHS PRN tablet PRN Reason: hiccups Continue Megestrol Es Liquid [Megace Es Liquid] 625 mg PO DAILY Ondansetron [Ondansetron Odt] 8 mg PO Q4H PRN #10 tab.rapdis PRN Reason: Nausea chlorproMAZINE TAB [Thorazine Tab] 25 mg PO Q6H PRN #20 tablet PRN Reason: Hiccups Albuterol Inhaler [Proventil Inhaler] 2 puff INH Q6H PRN #1 inhaler PRN Reason: Shortness Of Breath/Wheezing Discontinued Lisinopril/Hydrochlorothiazide [Lisinopril-Hctz 20-25 mg Tab] 1 each PO DAILY Ondansetron Odt Tab [Zofran Odt] 4 mg PO Q6H PRN PRN Reason: Nausea Baclofen Tab [Lioresal] 5 mg PO BID PRN #10 tablet PRN Reason: Hiccups Metoclopramide Tab [Reglan Tab] 5 mg PO ACHS #40 tablet Ondansetron Odt Tab [Zofran Odt] 4 mg PO Q4H PRN #10 tablet PRN Reason: Nausea chlorproMAZINE TAB [Thorazine Tab] 25 mg PO Q4-6H PRN #20 tablet PRN Reason: Hiccups - Follow Up or Referral - Forms/Instructions Exam - Constitutional Vitals: Period Temp Pulse Resp BP Sys/Flores Pulse Ox Last 24 Hr 97.4 F-98.8 F 78-90 12-20 131-157/76-94 94-98 Discharge Results Labs on day of discharge: Labs from last 24 hours 11/27/16 11/27/16 07:46 07:46 WBC 9.7 RBC 3.07 L Hgb 9.3 L Hct 28.1 L MCV 91.5 MCH 30 MCHC 33.1 RDW 17.2 Plt Count 351 MPV 9.7 Neut % (Auto) 62.7 Lymph % (Auto) 16.3 L [place] % (Auto) 11.1 Eos % (Auto) 0.6 Baso % (Auto) 0.4 Neut # (Auto) 6.1 Lymph # (Auto) 1.6 [place] # (Auto) 1.1 H Eos # (Auto) 0.1 Baso # (Auto) 0.0 Total Counted 100 Immature Gran % 8.9 Nucleated RBC % 0.3 Immature Gran # 0.86 Segmented Neutrophils 68 Band Neutrophils 1 Lymphocytes 16 L Monocytes 13 Eosinophils 1 Metamyelocytes 1 Nucleated RBCs # 0.03 Hypochromasia Slight Microcytosis 1+ Morphology Comment Sodium 141 Potassium 3.5 Chloride 109 H Carbon Dioxide 23 Anion Gap 12.5 BUN 11 Creatinine 0.80 GFR Calculation 109 BUN/Creatinine Ratio 13.00 Glucose 84 Calculated Osmolality 278.3 Calcium 8.7 Total Bilirubin 1.00 AST 18 ALT 9 L Alkaline Phosphatase 158 H Ammonia 32 Total Protein 6.0 L Albumin 2.0 L Globulin 4.0 H Albumin/Globulin Ratio 0.5 L DS: Provider Date of admission: 11/26/16 00:15 Primary care physician: Naresh Appiah Attending physician on admission: Aramis Grant MD Consults: 11/26/16 02:06 Consult to Dietitian [CONS] Routine Reason for Dietitian: Dietary Consult Consult Comment: pt reports weight loss and decreased appetite 11/26/16 07:56 Consult to Physical Therapy [CONS] Routine Reason for Physical Therapy: Evaluate and Treat 11/27/16 10:14 Consult to Case Mgmt/Social Srvs [CONS] Routine Reason for Case Mgmt/Social Srvs: Hospice Referral Discharging clinician: Aramis Grant MD
[2016-11-28] MEDS: MEGESTROL ES 125 MG/ML 30 ML/BOTTLE PO SCH (08:55)
[2016-11-28] MEDS: IBUPROFEN 800 MG TABLET PO SCH (08:56)
[2016-11-28] MEDS: SODIUM CHLORIDE 0.45% 1,000 ML IV SCH (10:29)
[2016-11-28 11:40] VITALS: BP 95/70
== END 2016-11-28 13:10 | disposition hospice, home (50) ==
LOC: EDUNIT# → EDBD → N.ED 21:08 → N.EDINP 21:08 → N.4E 11-26 01:28
PROVIDERS: ADMIT Specialist; ATTEND Specialist